=== PATIENT | female | born 1975 | race Caucasian/White ===

== ENCOUNTER 2019-06-12 20:39 | Observation (INO) | payer MEDICAID ==
[2019-06-12] MEDS ORDERED: SODIUM CHLORIDE 0.9% 1,000 ML IV ONE ×2 (20:55→21:22)
[2019-06-12] MEDS ORDERED: ADENOSINE 6 MG/2 ML VIAL IVP STA (20:56)
--- NOTE | 2019-06-12 21:07 | ED Physician Documentation ---
PD HPI DYSPNEA - Stated complaint Stated Complaint: CP/FAST HEART BEAT - Chief complaint Chief Complaint: Cardiac - History obtained from History obtained from: Patient, Family - History of Present Illness Timing - onset: Enter time (1500), Today Timing - onset during: Rest Timing - duration: Hours Timing - details: Abrupt onset, Still present Inciting event(s): Out of meds, URI Improved by: Rest, Sitting up Worsened by: Exertion, Laying flat, Coughing Associated symptoms: Cough, Chest pain / discomfort, Palpitations, Diaphoresis Similar symptoms before: Diagnosis (SVT) Recently seen: Not recently seen - Additional information Additional information: 44-year-old female who has recently moved to the area has not had her metoprolol for the last month. She has had a 3-day history of URI symptoms with cough congestion and ear pain. This afternoon at 3 PM she developed a rapid pounding heart similar to what she is had previously of SVT. She recalls having adenosine previously. She is complaining of chest and back pain associated with rapid heart rate. Review of Systems Constitutional: denies: Fever, Chills Eyes: denies: Decreased vision Ears: reports: Ear pain Nose: reports: Rhinorrhea / runny nose, Congestion Throat: denies: Sore throat Cardiac: reports: Chest pain / pressure, Palpitations Respiratory: reports: Dyspnea, Cough GI: denies: Abdominal Pain, Nausea, Vomiting : denies: Dysuria, Frequency Skin: denies: Rash PD PAST MEDICAL HISTORY - Allergies Allergies/Adverse Reactions: Allergies Allergy/AdvReac Type Severity Reaction Status Date / Time No Known Drug Allergies Allergy Verified 06/12/19 20:50 PD ED PE NORMAL - Vitals Vital signs reviewed: Yes - General General: Alert and oriented X 3, Well developed/nourished, Other (anxious and diaphoretic) - HEENT HEENT: Atraumatic, PERRL, EOMI, Other (both TM's are inflamed with distortion of the landmarks. There is significant retraction on the right. ) - Neck Neck: Supple, no meningeal sign, No bony TTP - Cardiac Cardiac: No murmur, Other (tachy to 160) - Respiratory Respiratory: Clear bilaterally, Other (tachypneic at rest ) - Abdomen Abdomen: Soft, Non tender - Back Back: No CVA TTP, No spinal TTP - Derm Derm: Normal color, Warm and dry, No rash - Extremities Extremities: No deformity, No edema - Neuro Neuro: Alert and oriented X 3, sheet rock applicator 2-12 intact, No motor deficit, No sensory deficit, Normal speech Eye Opening: Spontaneous Motor: Obeys Commands Verbal: Oriented GCS Score: 15 - Psych Psych: Normal mood, Normal affect Results - Vitals Vitals: Vital Signs - 24 hr 06/12/19 06/12/19 06/12/19 20:45 21:09 22:30 Temperature 36.7 C Heart Rate 184 H 90 84 Respiratory 24 14 14 Rate Blood Pressure 92/58 L 109/84 H 109/92 H O2 Saturation 100 98 97 06/12/19 06/13/19 23:36 00:34 Temperature Heart Rate 98 75 Respiratory 26 H 19 Rate Blood Pressure 117/76 108/68 O2 Saturation 99 99 Oxygen O2 Source Room air - EKG (time done) 2046 Rate: Rate (enter#) (162) Rhythm: Sinus tachycardia Ischemia: ST depression (inferior leads) Compare to prior EKG: Old EKG unavailable Computer interpretation: Agree with computer 0006 Rate: Rate (enter#) (79) Rhythm: NSR, LAE Compare to prior EKG: Changed from prior EKG (SPT earlier this visit the rate has decreased and the ST depression in the inferior leads has resolved. ) Computer interpretation: Agree with computer - Labs Labs: Laboratory Tests 06/12/19 06/12/19 06/12/19 21:18 21:18 21:18 WBC 9.3 RBC 4.50 Hgb 12.5 Hct 39.6 MCV 88.0 MCH 27.8 MCHC 31.6 L RDW 14.6 Plt Count 339 MPV 10.2 Neut # (Auto) 6.3 Lymph # (Auto) 2.4 Charlton # (Auto) 0.5 Eos # (Auto) 0.0 Baso # (Auto) 0.1 Absolute Nucleated RBC 0.00 Nucleated RBC % 0.0 Sodium 140 Potassium 3.0 L Chloride 109 Carbon Dioxide 22 Anion Gap 9.0 BUN 17 Creatinine 0.7 Estimated GFR (MDRD) 91 Glucose 134 H Calcium 9.1 Total Bilirubin 0.4 AST 20 ALT 12 Alkaline Phosphatase 43 Troponin I High Sens B-Natriuretic Peptide 39 Total Protein 6.7 Albumin 3.9 Globulin 2.8 Albumin/Globulin Ratio 1.4 Lipase 34 06/12/19 06/12/19 21:18 23:24 WBC RBC Hgb Hct MCV MCH MCHC RDW Plt Count MPV Neut # (Auto) Lymph # (Auto) Charlton # (Auto) Eos # (Auto) Baso # (Auto) Absolute Nucleated RBC Nucleated RBC % Sodium Potassium Chloride Carbon Dioxide Anion Gap BUN Creatinine Estimated GFR (MDRD) Glucose Calcium Total Bilirubin AST ALT Alkaline Phosphatase Troponin I High Sens 26.0 H* 70.8 H* B-Natriuretic Peptide Total Protein Albumin Globulin Albumin/Globulin Ratio Lipase Procedures - IVC sono (time) 2054 Bedside IVC sono: IVC measures (cm) (1.7), IVC collapsed c insp (cm) (complete), Dehydration (complete collapse of a generous vessle) 2104 Bedside IVC sono: IVC measures (cm) (0.78), IVC collapsed c insp (cm) (complete), Significant dehydration (est 2 liter deficit (after conversion)) PD MEDICAL DECISION MAKING - ED course Complexity details: reviewed results, re-evaluated patient, considered differential, d/w patient, d/w family, d/w storage management consultant (Dr. Hopkins recommends admission to observation and stress echo. ) ED course: 44 y/o female with a history of SVT has not been feeling well for the past 3 days. She has had some shortness of breath and cough nasal congestion and about 3 PM she developed acute tachycardia. She has had this previously she is come to the emergency department now many hours later with persistence of rapid heart rate and chest pain. We attempted modified Valsalva maneuver without success and following that we administered IV adenosine she converted and her symptoms resolved. Her initial troponnin was 27 and raised to 70. Dr. Hopkins at [facility] is consulted in the case and recommends admission here and stress echo. Dr. Wesley is consulted in the case. On exam the patient has ear pain, cough, dyspnea and otitis on exam. She is adminsitered IV decadron and rocephin. She is found to be dehydrated on interrogation of the IVC and she is administered IV saline. Departure - Departure Disposition: ED Place in Observation Clinical Impression: SVT (supraventricular tachycardia), Demand ischemia of myocardium, Dehydration Otitis media Qualifiers: Otitis media type: suppurative Chronicity: acute Laterality: bilateral Recurrence: non-recurrent Spontaneous tympanic membrane rupture: without spontaneous rupture Qualified Code(s): H66.003 - Acute suppurative otitis media without spontaneous rupture of ear drum, bilateral Discharge Date/Time: 06/13/19 01:11
[2019-06-12] MEDS ORDERED: cefTRIAXone 1 GM in SODIUM CHLORIDE 0.9% MINIBAG 100 ML IV STA (21:22)
[2019-06-12] MEDS ORDERED: DEXAMETHASONE 10 MG/ML VIAL IVP STA (21:22)
[2019-06-12 21:35] LABS: BASOPHILS # (AUTO) 0.1 10^3/uL (0.0-0.1); BASOPHILS % (AUTO) 0.5 %; EOSINOPHILS % (AUTO) 0.2 %; HGB - HEMOGLOBIN 12.5 g/dL (12.0-16.0); LYMPHOCYTES # (AUTO) 2.4 10^3/uL (1.5-3.5); LYMPHOCYTES % (AUTO) 25.5 %; MEAN CORPUSCULAR HEMOGLOBIN 27.8 pg (27.0-31.0); MEAN CORPUSCULAR HGB CONC 31.6 g/dL (32.0-36.0); MEAN PLATELET VOLUME 10.2 fL (7.9-10.8); MONOCYTES # (AUTO) 0.5 10^3/uL (0.0-1.0); MONOCYTES % (AUTO) 5.8 %; NEUTROPHILS # (AUTO) 6.3 10^3/uL (1.5-6.6); NEUTROPHILS % (AUTO) 67.7 %; PLT - PLATELET COUNT 339 10^3/uL (130-450); RED CELL DISTRIBUTION WIDTH 14.6 % (12.0-15.0); WHITE BLOOD COUNT 9.3 x10^3/uL (4.8-10.8)
[2019-06-12 21:37] LABS: ALBUMIN 3.9 g/dL (3.2-5.5); ALBUMIN/GLOBULIN RATIO 1.4 (1.0-2.2); BILIRUBIN,TOTAL 0.4 mg/dL (0.2-1.0); CALCIUM 9.1 mg/dL (8.5-10.3); CREATININE 0.7 mg/dL (0.4-1.0); TOTAL PROTEIN 6.7 g/dL (6.7-8.2)
[2019-06-12] MEDS ORDERED: POTASSIUM CHLORIDE 20 MEQ TABLET PO STA (21:49)
--- NOTE | 2019-06-13 00:26 | XRAY Report ---
Reason: chest pain Procedure Date: 06/12/2019 Accession Number: [id number] / [id number] Procedure: XR - Chest 1 View X-Ray CPT Code: 10701 Final Report FULL RESULT: EXAM: CHEST RADIOGRAPHY EXAM DATE: 06/12/2019 09:13 PM. CLINICAL HISTORY: Chest pain. COMPARISON: None. TECHNIQUE: 1 view. FINDINGS: The mediastinal and cardiac silhouettes are normal. The lungs are clear. No pleural effusion or pneumothorax is seen. The osseous structures are intact. IMPRESSION: Clear lungs. [facility]
[2019-06-13] MEDS ORDERED: SODIUM CHLORIDE FLUSH 0.9% 10 ML SYRINGE IVP PRN (00:43)
--- NOTE | 2019-06-13 01:29 | HISTORY & PHYSICAL EXAMINATION ---
Chief Complaint - Chief Complaint Chief Complaint: Chest pain and palpitations History of Present Illness - Admitted From Admitted From:: Home - History Obtained From Records Reviewed: Yes History obtained from: Patient, Daughter, ER Physician, EMR - History of Present Illness HPI Comment/Other: This is a 44-year-old female with a past medical history significant for SVT who presents today complaining of chest pain and palpitations. She states that she had not been feeling well for the past 3 to 4 days. She notes that she was becoming short of breath and was having chest pressure that radiated to her neck and right arm. She also noticed pain in her back and this also radiated to her neck and they felt like it was straining her. States her pain was a 7 out of 10 and is now a 4 out of 10. She reports feeling anxious and diaphoretic as well as dizzy and lightheaded. She does complain of chest tenderness with palpation. She reports no fevers or chills. Today she notes that her heart began to race at around 3 PM. She cannot go to the emergency department until this evening as she did not have a ride. She states she has had SVT on and off for the past 10 years. She is supposed be on metoprolol but has been out of it for the past 2 months as they just moved from [place] and [place] here. She states that she had the chest discomfort prior to the palpitations and that she normally can tell when her heart rate increases. She reports no prior history of stress test or echocardiogram. She has never seen a pararescue craftsman. She reports her father and grandfather both have heart disease and had CABGs. She believes her father may have had a blood clot although she is not certain. Denies any recent travel, surgeries, asymmetrical leg swelling. She has noted her ankles have been a little bit more swollen lately. She has also had nausea but no vomiting. Reports no abdominal pain. She is complaining of right-sided ear discomfort that has been going on for the past couple of days as well. In the emergency department, her heart rate was found to be 184 and she was given adenosine 6 mg. Her heart rate returned to sinus rhythm with rates in the 80s. Her EKG shows sinus rhythm without signs of ischemia. Her labs were unremarkable except for potassium of 3.0. Troponin was elevated at 26 and recheck 2 hours later had increased to 70.8. This was discussed with cardiology at [facility] who recommended observation and obtaining a stress echocardiogram. Patient received ceftriaxone and Decadron in the emergency department for otitis media. History - Past Medical History Cardiovascular: reports: Arrhythmia (SVT) Respiratory: reports: None Neuro: reports: None Endocrine/Autoimmune: reports: None GI: reports: None Psych: reports: Anxiety - Family & Social History Family History Comment/Other: He states her father and grandfather both had hear t disease and had CABGs in the past. She believes her father or grandfather may have also had a blood clot. She reports a history of alcoholism in the family. Living arrangement: At home Living Situation: With spouse/s.o. Social History Notes: She just moved from [place] to [facility] about 2 months ago. She lives with her daughter and at home. She smokes about 1 cigarette a day. She previously smoked much more and she began smoking at the age of 12. Denies any alcohol use or drug use. - POLST Patient has POLST: No Meds/Allgy - Allergies Allergies/Adverse Reactions: Allergies Allergy/AdvReac Type Severity Reaction Status Date / Time No Known Drug Allergies Allergy Verified 06/12/19 20:50 Review of Systems - Constitutional Constitutional: reports: Fatigue, Malaise. denies: Fever, Chills - Ears, Nose & Throat Ears, Nose & Throat: reports: Ear pain, Sore throat - Cardiovascular Cariovascular: reports: Irregular heart rate, Palpitations, Chest pain, Edema, Lightheadedness, Decr. exercise tolerance. denies: Syncope - Respiratory Respiratory: reports: SOB at rest, SOB with exertion - Gastrointestinal Gastrointestinal: reports: Nausea. denies: Abdominal pain, Vomiting - Musculoskeletal Musculoskeletal: denies: Limited range of motion, Muscle weakness - Integumentary Integumentary: denies: Rash - Neurological Neurological: reports: General weakness, Dizziness. denies: Focal weakness - Psychiatric Psychiatric: reports: Anxiety - All Other Systems All Other Systems: reports: Reviewed and negative Prior Level of Functionality: She is independent with her ADLs. Exam - Vital Signs Reviewed Vital Signs: Yes Vital Signs: Vital Signs x48h Temp Pulse Resp BP Pulse Ox 06/13/19 01:02 84 23 108/68 100 06/13/19 00:34 75 19 108/68 99 06/12/19 23:36 98 26 H 117/76 99 06/12/19 22:30 84 14 109/92 H 97 06/12/19 21:09 90 14 109/84 H 98 06/12/19 20:45 36.7 C 184 H 24 92/58 L 100 - Physical Exam General Appearance: positive: Alert, Mild distress Eyes Bilateral: positive: Normal inspection, Conjunctivae nml ENT: positive: ENT inspection nml, Other (Her right tympanic membrane is erythematous. Left tympanic membrane is mildly erythematous.) Neck: positive: Nml inspection Respiratory: positive: No respiratory distress. negative: Chest non-tender (Chest is tender to palpation.), Wheezes, Rales, Rhonchi Cardiovascular: positive: Regular rate & rhythm, No murmur. negative: Tachycardia, Bradycardia, Systolic murmur, Diastolic murmur Abdomen: positive: Non-tender, No distention. negative: Tenderness Skin: positive: No rash, Warm, Dry Extremities: positive: Full ROM, No pedal edema Neurologic/Psychiatric: positive: Oriented x3, Other (Appears anxious with pressured speech.). negative: Disoriented to person, Disoriented to place, Disoriented to time Conclusion/Plan - Problem List (1) SVT (supraventricular tachycardia) Conclusion/Plan: Presented with SVT and a heart rate of 162. This is not a new diagnosis for her but unfortunate she had not been taking her metoprolol. She is now in a sinus rhythm after receiving 6 mg of adenosine. We will restart her on metoprolol after the stress echo so that she can reach the optimal heart rate. We will optimize her electrolytes given her potassium was low at 4 we will check a TSH. Continue to monitor on telemetry. (2) Chest pain Conclusion/Plan: Some symptoms of angina but some of her chest pain complaints are also atypical. Her pain is reproducible on exam as she does have chest tenderness.. Her EKG initially did show concerns of ST depressions in leads II as well as III and aVF when her heart rate was in the 160s and in SVT. Repeat EKG shows no signs of ischemia. Her troponin was elevated at 26 and increased to 70.8. Given her complaints, we will give her aspirin 325 mg once. We will check a d-dimer and if this is elevated, will obtain a CT angiogram of the chest to evaluate for pulmonary embolisms. We will obtain a stress echocardiogram as recommended by cardiology. We will continue to trend her troponins.Will use Tylenol for pain control. We will hold off on nitroglycerin for the time being given her pressures are on the lower side with a systolic in the 100s and her initial EKG did show possible ST depressions in the inferior leads. (3) Elevated troponin Conclusion/Plan: Her troponin did increased from 26 to 70.8. This was initially thought to be demand ischemia from her SVT but given the steep rise and her ongoing chest pain, we will obtain a stress echocardiogram that was recommended by cardiology. If there is concerns for ischemia or her troponins continue to rise and she has ongoing chest pain, will be discussed with cardiology regarding transfer to higher level of care. We will give her aspirin 325 mg now. Continue to trend trponnin. (4) Acute otitis media Conclusion/Plan: She is complaining of right ear pain and the tympanic membrane does appear erythematous. She received ceftriaxone and Decadron in the emergency department. We will continue her on Augmentin. Qualifiers: Otitis media type: suppurative Laterality: right Recurrence: not specified as recurrent Spontaneous tympanic membrane rupture: without spontaneous rupture Qualified Code(s): H66.001 - Acute suppurative otitis media without spontaneous rupture of ear drum, right ear (5) Hypokalemia Conclusion/Plan: Potassium is low at 3 and this was replaced orally in the emergency department. This was likely contributing to her arrhythmia as well. Will recheck in the morning and replace as needed. We will likely discharge her on oral potassium supplementation. - Lab Results Lab results reviewed: Yes Fish Bones: 06/12/19 21:18 06/12/19 21:18 - Diagnostic Imaging Results Diagnostic Imaging Results: positive: Final report reviewed - EKG Results EKG Interpreted Independently: Yes EKG Findings: Her EKG shows sinus rhythm without signs of ischemia. Her initial EKG shows SVT with a heart rate of 162. There appears to be slight ST depressions in leads II and possibly leads III and aVF. Core Measures - Anticipated LOS I expect patient to be DC'd or transferred within 96 hours.: Yes - Issues Hospital Issues and Management Plan: 44-year-old female with SVT and elevated troponin. She has converted to sinus rhythm with adenosine. Given elevated troponin, will obtain a stress echo. - DVT/VTE - Prophylaxis VTE/DVT Device ordered at admit?: Yes VTE/DVT Prophylaxis med ordered at admit?: Yes
[2019-06-13] MEDS ORDERED: ASPIRIN CHEW 81 MG TABLET PO STA (01:35)
[2019-06-13] MEDS: LACTATED RINGERS 1,000 ML IV SCH ×2 (01:36→12:05)
[2019-06-13] MEDS: SODIUM CHLORIDE FLUSH 0.9% 10 ML SYRINGE IVP SCH ×3 (01:36→17:35)
[2019-06-13] MEDS: ONDANSETRON 4 MG/2 ML VIAL IVP PRN ×3 (01:36→16:30)
[2019-06-13 02:42] LABS: BILIRUBIN,URINE NEGATIVE (NEGATIVE); GLUCOSE, URINE (UA) NEGATIVE (NEGATIVE); KETONES,URINE (UA) TRACE mg/dL (NEGATIVE); LEUKOCYTE ESTERASE, URINE NEGATIVE (NEGATIVE); NITRITE,URINE NEGATIVE (NEGATIVE); OCCULT BLOOD,URINE NEGATIVE (NEGATIVE); PH,URINE 5.5 PH (5.0-7.5); PROTEIN,URINE NEGATIVE (NEGATIVE); UROBILINOGEN,URINE 0.2 (NORMAL) E.U./dL (NORMAL)
[2019-06-13 02:44] LABS: CLARITY,URINE CLEAR (CLEAR)
[2019-06-13 05:25] LABS: BASOPHILS % (AUTO) 0.3 %; EOSINOPHILS % (AUTO) 0.8 %; HGB - HEMOGLOBIN 11.9 g/dL (12.0-16.0); LYMPHOCYTES % (AUTO) 9.5 %; MEAN CORPUSCULAR HEMOGLOBIN 27.1 pg (27.0-31.0); MEAN CORPUSCULAR HGB CONC 31.3 g/dL (32.0-36.0); MEAN CORPUSCULAR VOLUME 86.6 fL (81.0-99.0); MEAN PLATELET VOLUME 9.5 fL (7.9-10.8); MONOCYTES % (AUTO) 0.8 %; NEUTROPHILS % (AUTO) 88.3 %; PLT - PLATELET COUNT 307 10^3/uL (130-450); RED BLOOD COUNT 4.39 10^6/uL (4.20-5.40); RED CELL DISTRIBUTION WIDTH 14.6 % (12.0-15.0)
[2019-06-13 05:35] LABS: BAND NEUTROPHILS % (MANUAL) 0 %
[2019-06-13 05:36] LABS: CALCIUM 8.8 mg/dL (8.5-10.3); CREATININE 0.6 mg/dL (0.4-1.0); MAGNESIUM 2.3 mg/dL (1.7-2.8)
[2019-06-13 05:58] LABS: ABNORMAL LYMPHS % (MANUAL) 5 %; LYMPHOCYTES # (MANUAL) 0.8 10^3/uL (1.5-3.5); LYMPHOCYTES % (MANUAL) 8 %; MONOCYTES # (MANUAL) 0.1 10^3/uL (0.0-1.0)
[2019-06-13 05:59] LABS: DIFFERENTIAL COMMENT MANUAL DIFFERENTIAL; PLATELET ESTIMATE, MANUAL NORMAL (130-450,000) (NORMAL); PLATELET MORPHOLOGY NORMAL APPEARANCE (NORMAL); RBC MORPHOLOGY (MULTIPLE) NORMAL APPEARANCE (NORMAL)
[2019-06-13 07:11] LABS: HB2 TOTAL 12.4 g/dL; HEMOGLOBIN A1C 0.46 g/dL; HEMOGLOBIN A1C % 5.5 % (4.6-6.2)
[2019-06-13] MEDS: ACETAMINOPHEN 325 MG TABLET PO PRN ×2 (08:20→16:30)
[2019-06-13] MEDS ORDERED: ENOXAPARIN 40 MG/0.4 ML SYRINGE SUBQ SCH (09:00)
[2019-06-13] MEDS ORDERED: AMOX/CLAV 875 MG/125 MG TABLET PO SCH (09:00)
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
--- NOTE | 2019-06-13 15:54 | PHARMACY PROGRESS NOTE ---
- Best Possible Medication History Admit Date and Time: 06/13/19 0043 Processed by: Pharmacy Medication History completed: Yes Patient Interview: Completed (Patient states she has not been currently taking any medications at home; (last taken dates in 2019); patient reports she does not have a current established PCP, insurance records did not yield any filled prescriptions) Secondary Source(s): Pharmacy records As the person ultimately responsible for medication therapy, providers are able to order a medication from an existing home medication list in [facility] via the "Reconcile Routine" prior to Confirmation of that medication by product support specialist. Such practice is discouraged except when the physician, in their clinical judgment, deems that a medical need exists for a medication without regard to previous use.
--- NOTE | 2019-06-13 16:38 | Nuclear Medicine Report ---
Reason: Chest pain. SVT. Elevated troponin. Procedure Date: 06/13/2019 Accession Number: [id number] / [id number] Procedure: NM - Myocardial Perfusion STR/RST CPT Code: Final Report FULL RESULT: EXAM: SINGLE-ISOTOPE EXERCISE STRESS TEST. SINGLE-ISOTOPE AND ONE-DAY REST/STRESS MYOCARDIAL PERFUSION SCANS WITH TOMOGRAPHIC IMAGING, QUANTITATIVE ANALYSIS, WALL MOTION ANALYSIS AND CALCULATION OF EJECTION FRACTION. EXAM DATE: 06/13/2019 03:41 PM. CLINICAL HISTORY: Chest pain. SVT. Elevated troponin. COMPARISON: None. TECHNIQUE: A rest myocardial perfusion scan was done with tomography after the intravenous administration of 11.0 mCi Tc-99m sestamibi. After an appropriate delay, a treadmill exercise stress was performed according to department protocol. The patient exercised for 9 minutes and 34 seconds. The maximum heart rate was 154 bpm, which was 87% of the maximum predicted heart rate of 177 bpm. At approximately peak heart rate, 41.0 mCi of Tc-99m sestamibi was injected for stress myocardial perfusion scan. Motion correction was applied when appropriate. Gated tomographic images were obtained for wall motion analysis and computation of left ventricular ejection fraction. FINDINGS: Perfusion images: Left ventricular chamber size appears normal at rest and unchanged at stress. No convincing fixed perfusion deficits. Moderate size region of mildly reduced uptake involving the apical half of the anterior wall, appears partially improved on rest images. SSS 12, SRS 0, SDS 12. Gated images: No convincing focal wall motion abnormality. Calculated left ventricular EDV 74 mL, ESV 16 mL. The left ventricular ejection fraction is estimated at 78% (normal > 50%). IMPRESSION: 1. Moderate size, mild severity apical anterior wall reversible perfusion deficit suggesting stress-induced ischemia. 2. No convincing fixed perfusion deficits. 3. Left ventricular ejection fraction of 78% (normal > 50%). Please correlate findings with stress ECG tracings and procedure notes. [facility] The call report notification system was initiated by Dr. Issa Watson at 04:29 PM on 06/13/2019. The above call report findings were discussed with Dr. Kline by Dr. Issa Watson at 04:36 PM on 06/13/2019.
[2019-06-13] MEDS ORDERED: METOPROLOL TARTRATE 25 MG TABLET PO SCH ×2 (16:40→21:00)
--- NOTE | 2019-06-13 17:39 | DISCHARGE SUMMARY ---
"Discharge Summary Admit Date: 06/13/19 Discharge Date: 06/13/19 Discharging Provider: Neal Solano Discharge Disposition: 02 Transfer Acute Care Hosp Discharge Facility Name: [facility] - DIAGNOSES Admission Diagnoses: (1) SVT (supraventricular tachycardia) (2) Chest pain (3) Elevated troponin (4) Acute otitis media (5) Hypokalemia Discharge Diagnoses with Status of Each Condition: (1) SVT (supraventricular tachycardia) resolved after pt was given 6 mg Adenosine. resume pt home Metoprolol (2) Chest pain no more chest pain. elevated troponin but normal EKG after adenosine. Stress test is positive for stress-induced ischemia. I called [facility] hospitalist and para professional, both agreed to accept pt for further workup. pt will be transferred to [facility] for high level care. pt was ordered Aspirin, Lovenox, Lipitor, metoprolol and Lisinopril. ECHO was ordered and pending. pt is hemodynamic stable now. pt has no chest pain now. (3) UNSTEMI with Elevated troponin elevated troponin but normal EKG after adenosine. Stress test is positive for stress-induced ischemia. I called [facility] hospitalist and para professional, both agreed to accept pt for further workup. pt will be transferred to [facility] for high level care. pt was given Aspirin, Lovenox, Lipitor, metoprolol and order Lisinopril. ECHO was ordered. pt is hemodynamic stable now. pt has no chest pain now. (4) Acute otitis media pt is given Augmentin (5) Hypokalemia resolved (6) medical non-compliant advise pt for medical compliance (7) severe shortness of breath on exertion it is likely caused by USTEMI. pt will be transferred to high level care in [facility] History of Present Illness: refer from Dr. Wesley's HPI on 06/13/2019 This is a 44-year-old female with a past medical history significant for SVT who presents today complaining of chest pain and palpitations. She states that she had not been feeling well for the past 3 to 4 days. She notes that she was becoming short of breath and was having chest pressure that radiated to her neck and right arm. She also noticed pain in her back and this also radiated to her neck and they felt like it was straining her. States her pain was a 7 out of 10 and is now a 4 out of 10. She reports feeling anxious and diaphoretic as well as dizzy and lightheaded. She does complain of chest tenderness with palpation. She reports no fevers or chills. Today she notes that her heart began to race at around 3 PM. She cannot go to the emergency department until this evening as she did not have a ride. She states she has had SVT on and off for the past 10 years. She is supposed be on metoprolol but has been out of it for the past 2 months as they just moved from [place] and [place] transfer here. She states that she had the chest discomfort prior to the palpitations and that she normally can tell when her heart rate increases. She reports no prior history of stress test or echocardiogram. She has never seen a para professional. She reports her father and grandfather both have heart disease and had CABGs. She believes her father may have had a blood clot although she is not certain. Denies any recent travel, surgeries, asymmetrical leg swelling. She has noted her ankles have been a little bit more swollen lately. She has also had nausea but no vomiting. Reports no abdominal pain. She is complaining of right-sided ear discomfort that has been going on for the past couple of days as well. In the emergency department, her heart rate was found to be 184 and she was given adenosine 6 mg. Her heart rate returned to sinus rhythm with rates in the 80s. Her EKG shows sinus rhythm without signs of ischemia. Her labs were unremarkable except for potassium of 3.0. Troponin was elevated at 26 and recheck 2 hours later had increased to 70.8. This was discussed with cardiology at [facility] who recommended observation and obtaining a stress echocardiogram. Patient received ceftriaxone and Decadron in the emergency department for otitis media. - CONSULTS | PROCEDURES Consultations: Dr. Norwood Procedures: stress test - HOSPITAL COURSE Hospital Course: pt was admitted for palpitation and chest pain. pt was found to have SVT. After pt was given 6mg adenosine, pt's SVT was reversed to NSR. pt has elevated troponin. Stress test done on today reveals moderate size, mild severity apical anterior wall reversible perfusion deficit suggesting stress-induced ischemia. Hospitalist and para professional in [facility] accepted pt for high level care. pt will be transferred to [facility]. The detail hospital course is as the below. (1) SVT (supraventricular tachycardia) resolved after pt was given 6 mg Adenosine. resume pt home Metoprolol (2) Chest pain no more chest pain now. elevated troponin but normal EKG after adenosine. Stress test is positive for stress-induced ischemia. I called [facility] hospitalist and para professional, both agreed to accept pt for further workup. pt will be transferred to [facility] for high level care. pt was ordered Aspirin, Lovenox, Lipitor, metoprolol and Lisinopril. ECHO was ordered and pending. pt is hemodynamic stable now. pt has no chest pain now. (3) UNSTEMI with Elevated troponin elevated troponin but normal EKG after adenosine. Stress test is positive for stress-induced ischemia. I called [facility] hospitalist and para professional, both agreed to accept pt for further workup. pt will be transferred to [facility] for high level care. pt was given Aspirin, Lovenox, Lipitor, metoprolol and order Lisinopril. ECHO was ordered. pt is hemodynamic stable now. pt has no chest pain now. (4) Acute otitis media pt is given Augmentin (5) Hypokalemia resolved (6) medical non-compliant advise pt for medical compliance (7) severe shortness of breath on exertion it is likely caused by USTEMI. pt will be transferred to high level care in [facility] - ALLERGIES Allergies/Adverse Reactions: Allergies Allergy/AdvReac Type Severity Reaction Status Date / Time No Known Drug Allergies Allergy Verified 06/12/19 20:50 - MEDICATIONS Home Medications: Ambulatory Orders Medication Instructions Recorded Confirmed ARIPiprazole [Aripiprazole] 30 mg PO DAILY 06/13/19 06/13/19 Gabapentin 300 mg PO TID 06/13/19 06/13/19 Metoprolol Tartrate 25 mg PO BID 06/13/19 06/13/19 PARoxetine HCl [Paroxetine HCl] 40 mg PO DAILY 06/13/19 06/13/19 - PHYSICAL EXAM AT DISCHARGE General Appearance: positive: No acute distress, Alert. negative: Lethargic Eyes Bilateral: positive: Normal inspection, PERRL, EOMI, No lid inflammation ENT: positive: ENT inspection nml, Pharynx nml, No signs of dehydration. negative: Purulent nasal drainage Neck: positive: Nml inspection, Thyroid nml, No JVD, Trachea midline. negative: Thyromegaly, Lymphadenopathy (R), Lymphadenopathy (L), Stiff neck, Tracheal deviation Respiratory: positive: Chest non-tender, No respiratory distress, Breath sounds nml. negative: Wheezes, Rales, Rhonchi Cardiovascular: positive: Regular rate & rhythm, No murmur, No gallop. negative: Irregularly irregular, Extrasystoles, Tachycardia, Bradycardia, JVD present, Systolic murmur, Diastolic murmur Peripheral Pulses: positive: 2+ Abdomen: positive: Non-tender, No organomegaly, Nml bowel sounds, No distention. negative: Tenderness, Guarding, Rebound Back: positive: Nml inspection. negative: CVA tenderness (R), CVA tenderness (L) Skin: positive: Color nml, No rash, Warm, Dry. negative: Cyanosis, Diaphoresis, Pallor Extremities: positive: Non-tender, Full ROM, Nml appearance. negative: Calf tenderness, Lasha's sign/cords Neurologic/Psychiatric: positive: Oriented x3, Motor nml, Sensation nml. negative: Weakness, Sensory loss, Facial droop, Slurred/abnml speech, Depressed mood/affect - LABS Result Diagrams: 06/13/19 04:30 06/13/19 04:30 - FOLLOW UP Follow Up: pt will be transferred to [facility] for high level of care - TIME SPENT Time Spent in Discharge (Minutes): 30"
[2019-06-13] MEDS ORDERED: ENOXAPARIN 80 MG/0.8 ML SYRINGE SUBQ SCH ×2 (18:00→21:00)
[2019-06-13 18:04] LABS: HCG UR QUAL NEGATIVE
[2019-06-13 18:28] LABS: HCG,QUALITATIVE BLOOD NEGATIVE
[2019-06-13 19:14] VITALS: BP 107/68
[2019-06-13] MEDS ORDERED: LORazepam 0.5 MG TABLET PO STA (19:31)
[2019-06-13] MEDS ORDERED: LORazepam 0.5 MG TABLET ONE (19:35)
[2019-06-13] MEDS ORDERED: ATORVASTATIN 40 MG TABLET PO SCH (21:00)
[2019-06-13] MEDS ORDERED: GABAPENTIN 300 MG CAPSULE PO SCH (22:00)
[2019-06-14] MEDS ORDERED: ASPIRIN 325 MG TABLET PO SCH (08:00)
[2019-06-14] MEDS ORDERED: lisinopriL 5 MG TABLET PO SCH (09:00)
[2019-06-14] MEDS ORDERED: ARIPiprazole 5 MG TABLET PO SCH (09:00)
[2019-06-14] MEDS ORDERED: PARoxetine 10 MG TABLET PO SCH (09:00)
== END 2019-06-13 19:40 | disposition short-term general hospital (02) ==
LOC: ED 20:39 → MS2 06-13 00:43
PROVIDERS: ADMIT Internal Medicine; ATTEND Nurse Practitioner Gerontology
DX: I21.4 Non-ST elevation (NSTEMI) myocardial infarction (principal); I47.1 Supraventricular tachycardia; F17.210 Nicotine dependence, cigarettes, uncomplicated; H66.001 Acute suppurative otitis media without spontaneous rupture of ear drum, right ear; E87.6 Hypokalemia; T44.7X6A Underdosing of beta-adrenoreceptor antagonists, initial encounter; Y92.009 Unspecified place in unspecified non-institutional (private) residence as the place of occurrence of the external cause; Z82.49 Family history of ischemic heart disease and other diseases of the circulatory system; Z79.899 Other long term (current) drug therapy
CPT/HCPCS: 36415; 71045; 78452; 80048; 80053; 81003; 81025; 83036; 83690; 83735; 83880; 84100; 84439; 84443; 84484; 84703; 85025; 85379; 93005; 93017; 93306; 96361; 96365; 96372; 96375; 96376; 99284; 99285; A9270; A9500; G0378; J0153; J1650; J7120; 81001; 87086

== ENCOUNTER 2019-06-13 19:46 | Outpatient (CLI) | payer MEDICAID | END 2019-06-13 19:47 | disposition short-term general hospital (02) | LOC: EMS 19:46 | PROVIDERS: ATTEND Surgery | DX: R07.89 Other chest pain (principal); R00.2 Palpitations | CPT/HCPCS: A0425; A0426 ==

== ENCOUNTER 2019-10-11 11:32 | Emergency (ER) | payer MEDICAID ==
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
[2019-10-11 12:35] LABS: BILIRUBIN,URINE NEGATIVE (NEGATIVE); GLUCOSE, URINE (UA) NEGATIVE (NEGATIVE); KETONES,URINE (UA) NEGATIVE (NEGATIVE); LEUKOCYTE ESTERASE, URINE NEGATIVE (NEGATIVE); NITRITE,URINE NEGATIVE (NEGATIVE); OCCULT BLOOD,URINE NEGATIVE (NEGATIVE); PROTEIN,URINE NEGATIVE (NEGATIVE); UROBILINOGEN,URINE 0.2 (NORMAL) E.U./dL (NORMAL)
[2019-10-11 12:40] LABS: CLARITY,URINE CLEAR (CLEAR); HCG UR QUAL NEGATIVE
[2019-10-11] MEDS ORDERED: DEXAMETHASONE 10 MG/ML VIAL PO STA (12:55)
[2019-10-11] MEDS ORDERED: oxyCODONE 5 MG TABLET PO STA (12:55)
[2019-10-11] MEDS ORDERED: KETOROLAC 30 MG/ML VIAL IM STA (12:55)
[2019-10-11] MEDS ORDERED: CHERRY SYRUP 10 ML UDC PO ONE (12:55)
[2019-10-11 14:26] VITALS: BP 112/72
== END 2019-10-11 14:43 | disposition home or self-care (01) ==
LOC: ED 11:32
DX: M54.42 Lumbago with sciatica, left side (principal); F17.200 Nicotine dependence, unspecified, uncomplicated
CPT/HCPCS: 51798; 81003; 81025; 96372; 99284; A9270; 81001; 87086